=== PATIENT | male | born 1950 | race Caucasian/White ===

== ENCOUNTER 2016-08-28 22:53 | Inpatient (IN) | payer OTHER, MEDICARE ==
[~2016-08-28] VITALS: Ht 182.9 cm; Wt 91.1 kg
[2016-08-28] MEDS ORDERED: ZESTRIL 10MG10 MG PO (23:14)
[2016-08-28] MEDS ORDERED: KLONOPIN 1MG1 MG PO (23:14)
[2016-08-28] MEDS ORDERED: RESTORIL30 MG PO (23:14)
[2016-08-28] MEDS ORDERED: XARELTO20 MG PO (23:14)
[2016-08-28] MEDS ORDERED: WELLBUTRIN XL300 M1 PO (23:15)
[2016-08-28] MEDS ORDERED: ALDACTONE 25MG25 M1 PO (23:15)
[2016-08-28] MEDS ORDERED: LASIX 20MG TABL20 MG PO (23:15)
[2016-08-28] MEDS ORDERED: CORDARONE200 MG/TAB PO (23:15)
[2016-08-28] MEDS ORDERED: COREG12.5 MG PO (23:15)
[2016-08-28] MEDS ORDERED: MIRALAX PA17 GM/Dose PO (23:16)
[2016-08-28] MEDS ORDERED: SLOW-MAG 6464 MG/TAB PO (23:16)
[2016-08-28] MEDS ORDERED: ASTELIN NASAL S34 ML IH (23:16)
[2016-08-28] MEDS ORDERED: TRIAMCINOLONE A15 GM TP (23:16)
[2016-08-28 23:20] LABS: MEAN CELL VOLUME 84 fl (80.0-100.0); MEAN CORPUSCULAR HGB CONC 31 g/dl (33.0-37.0); MEAN PLATELET VOLUME 9.5 fl (7.4-10.4); PLATELET COUNT 478 K/mm3 (130-400); RED BLOOD COUNT 2.08 M/mm3 (4.20-5.60); REDCELL DISTRIBUTION WIDTH-CV 18.5 % (11.5-14.5)
[2016-08-28 23:25] LABS: HEMATOCRIT 17.4 % (42.0-52.0); HEMOGLOBIN 5.3 g/dl (13.5-18.0); MEAN CORPUSCULAR HEMOGLOBIN 25 pg (27.0-31.0); WHITE BLOOD COUNT 21.2 K/mm3 (4.8-10.8)
[2016-08-28 23:26] LABS: ADD PATHOLOGY DIFF REVIEW NO
[2016-08-28 23:30] LABS: ADJUSTED CALCIUM 8.9 mg/dL (8.4-10.2); ALBUMIN 3.2 gm/dL (3.5-5.0); BILIRUBIN,TOTAL 0.6 mg/dL (0.0-1.0); CALCIUM 8.3 mg/dL (8.4-10.2); CREATININE, serum 1.53 mg/dL (0.66-1.25); TOTAL PROTEIN 6.7 gm/dL (6.4-8.2)
[2016-08-28 23:36] LABS: INR 2.9 (0.8-3.0); PROTHROMBIN TIME 32.7 SECONDS (9.7-12.8)
[2016-08-28 23:39] LABS: PARTIAL THROMBOPLASTIN TIME 33.3 SECONDS (26.0-37.0)
[2016-08-28 23:41] LABS: BAND 50 % (0-10); EOSINOPHIL 1 % (0-4); NEUTROPHILS 32 % (42.0-75.2); PLATELET ESTIMATE NORMAL (NORMAL); TOTAL CELLS COUNTED 100; TROPONIN-I 0.028 ng/mL (0.000-0.034)
[2016-08-28 23:42] LABS: ANISOCYTOSIS 2+; HYPOCHROMIA 1+
[2016-08-29] VITALS (955 sets, daily range): BP systolic 80–110; BP diastolic 40–84; PULSE 66–78; TEMP 97.5–99.8; O2SAT 59–100
[2016-08-29 00:55] LABS: PH 5 (5-8); SQUAMOUS EPITHELIAL None Seen /hpf; URINE APPEARANCE Hazy; URINE BACTERIA None Seen /hpf; URINE BILIRUBIN Negative (NEGATIVE); URINE BLOOD Negative (NEGATIVE); URINE COLOR Yellow; URINE GLUCOSE Negative (NEGATIVE); URINE KETONE Negative (NEGATIVE); URINE UROBILINOGEN Negative (NEGATIVE); URINE WBC 0-2 /hpf
[2016-08-29 06:19] LABS: MEAN CELL VOLUME 87 fl (80.0-100.0); MEAN CORPUSCULAR HGB CONC 32 g/dl (33.0-37.0); MEAN PLATELET VOLUME 9.3 fl (7.4-10.4); PLATELET COUNT 443 K/mm3 (130-400); RED BLOOD COUNT 2.23 M/mm3 (4.20-5.60); REDCELL DISTRIBUTION WIDTH-CV 17.6 % (11.5-14.5); WHITE BLOOD COUNT 17.1 K/mm3 (4.8-10.8)
[2016-08-29 06:22] LABS: HEMATOCRIT 19.4 % (42.0-52.0); MEAN CORPUSCULAR HEMOGLOBIN 28 pg (27.0-31.0)
[2016-08-29 06:23] LABS: ADD PATHOLOGY DIFF REVIEW NO; HEMOGLOBIN 6.2 g/dl (13.5-18.0)
[2016-08-29 06:27] LABS: CALCIUM 7.6 mg/dL (8.4-10.2); CREATININE, serum 1.38 mg/dL (0.66-1.25); POTASSIUM 4.5 mmol/L (3.4-5.0)
[2016-08-29 07:06] LABS: BAND 48 % (0-10); EOSINOPHIL 1 % (0-4); NEUTROPHILS 37 % (42.0-75.2); PLATELET ESTIMATE INCREASED (NORMAL); TOTAL CELLS COUNTED 100
[2016-08-29 07:07] LABS: TOXIC GRANULATION PRESENT
[2016-08-29 07:10] LABS: HYPOCHROMIA 1+
[2016-08-29 15:50] LABS: HEMATOCRIT 24.4 % (42.0-52.0); HEMOGLOBIN 8.1 g/dl (13.5-18.0)
[2016-08-29 16:47] LABS: VENOUS BLOOD GAS BE -7.2 (-4-4); VENOUS BLOOD GAS SAO2 54.6 % (60-80)
[2016-08-29 16:48] LABS: VENOUS BLOOD GAS SITE CENTRAL LINE
[2016-08-29 17:43] LABS: ARTERIAL BLD GAS O2 SATURATION 95.6 % (92-100); ARTERIAL BLD GAS TCO2 CT 15.8; ARTERIAL BLOOD GAS BASE EXCESS -8.3 (-2-2); ARTERIAL BLOOD GAS HCO3 15.1 meq/L (22-26); ARTERIAL BLOOD GAS PO2 90.6 mmHg (80-100); ARTERIAL BLOOD GAS pH 7.43 (7.35-7.45); OXYHEMOGLOBIN 94.2 %
[2016-08-29 17:44] LABS: ATS? YES
[2016-08-29 19:47] LABS: VENOUS BLOOD GAS BE -6.5 (-4-4); VENOUS BLOOD GAS SITE CENTRAL LINE
[2016-08-30] VITALS (1102 sets, daily range): BP systolic 100–140; BP diastolic 57–76; PULSE 64–69; TEMP 97.1–98.4; O2SAT 52–100
[2016-08-30 00:13] LABS: VENOUS BLOOD GAS BE -9.7 (-4-4); VENOUS BLOOD GAS SAO2 78.1 % (60-80)
[2016-08-30 00:14] LABS: VENOUS BLOOD GAS SITE CENTRAL LINE
[2016-08-30 00:17] LABS: HEMATOCRIT 23.8 % (42.0-52.0); HEMOGLOBIN 8.1 g/dl (13.5-18.0)
[2016-08-30 04:18] LABS: VENOUS BLOOD GAS BE -9.5 (-4-4); VENOUS BLOOD GAS SITE CENTRAL LINE
[2016-08-30 05:31] LABS: MEAN CELL VOLUME 87 fl (80.0-100.0); MEAN CORPUSCULAR HGB CONC 34 g/dl (33.0-37.0); MEAN PLATELET VOLUME 9.6 fl (7.4-10.4); RED BLOOD COUNT 2.72 M/mm3 (4.20-5.60); WHITE BLOOD COUNT 10.3 K/mm3 (4.8-10.8)
[2016-08-30 05:34] LABS: HEMATOCRIT 23.6 % (42.0-52.0); HEMOGLOBIN 7.9 g/dl (13.5-18.0); MEAN CORPUSCULAR HEMOGLOBIN 29 pg (27.0-31.0); PLATELET COUNT 262 K/mm3 (130-400)
[2016-08-30 05:35] LABS: ADD PATHOLOGY DIFF REVIEW NO
[2016-08-30 05:36] LABS: INR 1.5 (0.8-3.0); PROTHROMBIN TIME 17.2 SECONDS (9.7-12.8)
[2016-08-30 05:46] LABS: BAND 33 % (0-10); NEUTROPHILS 52 % (42.0-75.2); TOTAL CELLS COUNTED 100
[2016-08-30 06:01] LABS: ADJUSTED CALCIUM 7.2 mg/dL (8.4-10.2); ALBUMIN 1.7 gm/dL (3.5-5.0); BILIRUBIN,TOTAL 0.7 mg/dL (0.0-1.0); CREATININE, serum 0.85 mg/dL (0.66-1.25); POTASSIUM 3.3 mmol/L (3.4-5.0); TOTAL PROTEIN 4.3 gm/dL (6.4-8.2)
[2016-08-30 06:12] LABS: CALCIUM 5.4 mg/dL (8.4-10.2)
[2016-08-30 14:50] LABS: HEMOGLOBIN 9.9 g/dl (13.5-18.0)
[2016-08-30 14:51] LABS: HEMATOCRIT 29.6 % (42.0-52.0)
[2016-08-30 16:32] LABS: VENOUS BLOOD GAS BE -8.5 (-4-4); VENOUS BLOOD GAS SAO2 65.4 % (60-80); VENOUS BLOOD GAS SITE CENTRAL LINE
[2016-09-27] MEDS ORDERED: ANTACID200 MG PO (10:21)
[2016-09-27] MEDS ORDERED: COLACE 100100 MG/CAP PO (10:22)
[2016-09-27] MEDS ORDERED: PROTONIX 40MG T40 MG PO (10:24)
[2016-09-27] MEDS ORDERED: NORCO 325 MG-51 TAB PO (10:29)
[2016-09-27] MEDS ORDERED: XANAX .25M0.25 MG/TA PO (10:29)
== END 2016-08-30 21:55 | disposition short-term general hospital (02) | DRG 853 ==
LOC: COL.ER 22:53 → ICU 08-29 00:38
PROVIDERS: Emergency Medicine; Family Medicine; Internal Medicine; Internal Medicine Pulmonary Disease; Urology
PROC: 0JBB0ZZ Excision of Perineum Subcutaneous Tissue and Fascia, Open Approach (ICD-10-PCS; 2016-08-29)
PROC: 0JBC0ZZ Excision of Pelvic Region Subcutaneous Tissue and Fascia, Open Approach (ICD-10-PCS; 2016-08-29)
PROC: 0VT Male Reproductive System, Resection (ICD-10-PCS; principal; 2016-08-29 11:00)
DX: A41.9 Sepsis, unspecified organism (principal); M72.6 Necrotizing fasciitis; D62 Acute posthemorrhagic anemia; K92.2 Gastrointestinal hemorrhage, unspecified; N17.9 Acute kidney failure, unspecified; N49.2 Inflammatory disorders of scrotum; I10 Essential (primary) hypertension; J44.9 Chronic obstructive pulmonary disease, unspecified; N49.3 Fournier gangrene; E87.6 Hypokalemia; E83.51 Hypocalcemia; R65.20 Severe sepsis without septic shock; I48.2 Chronic atrial fibrillation
CPT/HCPCS: 99223-AI; 99233-AI; 99239; A4315; C1751; C9113; J0610; J0694; J1250; J1644; J1720; J1815; J1940; J1956; J2270; J2405; J2543; J2704; J2710; J2765; J3010; J3370; J3480; J7030; J7050; P9016

== ENCOUNTER → 2016-09-27 | Outpatient (CLI) | payer OTHER, MEDICARE ==
[2016-09-27] VITALS (13 sets, daily range): BP systolic 103–119; BP diastolic 54–84; PULSE 76–81
[~2016-09-27] VITALS: Ht 182.9 cm; Wt 77.9 kg
[~2016-09-27] MED LIST: ALDACTONE 25MG25 M1 PO; ANTACID200 MG PO; ASTELIN NASAL S34 ML IH; COLACE 100100 MG/CAP PO; CORDARONE200 MG/TAB PO; COREG12.5 MG PO; KLONOPIN 1MG1 MG PO; LASIX 20MG TABL20 MG PO; MIRALAX PA17 GM/Dose PO; NORCO 325 MG-51 TAB PO; PROTONIX 40MG T40 MG PO; RESTORIL30 MG PO; SLOW-MAG 6464 MG/TAB PO; TRIAMCINOLONE A15 GM TP; WELLBUTRIN XL300 M1 PO; XANAX .25M0.25 MG/TA PO; XARELTO20 MG PO; ZESTRIL 10MG10 MG PO
== END ==
LOC: COL.RAD 09:04
DX: M46.46 Discitis, unspecified, lumbar region (principal)
CPT/HCPCS: J2250; J3010